=== PATIENT | female | born 1960 | race Caucasian/White ===

== ENCOUNTER → 2018-01-15 | Outpatient (CLI) | payer OTHER, MEDICAID ==
[2016-01-22 14:01] VITALS: BP 138/74
[2018-01-15 09:00] LABS: CHOL/HDL RATIO 4.6 (0.0-5.0)
== END ==
LOC: LAB 07:39
PROVIDERS: ATTEND Nuclear Medicine Nuclear Cardiology
DX: E78.4 Other hyperlipidemia (principal)
CPT/HCPCS: 36415; 80061; 84450; 84460

== ENCOUNTER 2025-07-02 06:24 | Inpatient (IN) ==
--- NOTE | 2025-07-02 06:41 | DR.CP ---
HPI <Michelle Macdonald - Last Filed: 07/08/25 21:50> Time Seen Time Seen by Provider: 07/02/25 06:40 PCP Primary Care Physician: HPI Comment HPI Comment: 64 y/o with copd with cough and worsening sob x 2 days for which she received home oxygen but did not know how to use it; this morning, she woke with substernal cp, n/v x 3 and generally feeling worse so she called ems. Complaint Chief Complaint:: pt c/o Sob,cough,nausea and chest pain that started three days ago and is getting worse. COVID-19 Coronavirus risk:travel/contact w/high risk person: No Has patient experienced Coronavirus symptoms: Yes Coronavirus symptoms experienced: Coughing and Shortness of Breath Source History Provided: Patient Mode of Arrival Mode of Arrival: EMS Timing Onset of Chief Complaint: 06/29/25 PMH <Michelle Macdonald - Last Filed: 07/08/25 21:50> PMH Past Medical History: Yes Past Medical History: Anxiety, COPD, Diabetes, Dyslipidemia, GERD and Hypertension Past Surgical History: Yes Surgical History: Appendectomy, Cholecystectomy, Hysterectomy and Other Family History History of Family Medical Conditions: Yes Family Medical History: Diabetes Mellitus, [place], Coronary Artery Disease and Hypertension Social History Does patient currently use any type of tobacco product: Yes Have you used tobacco products in the last 12 months: Yes Type of Tobacco Use: Cigarettes Do you use any recreational Drugs:: No Travel Risk Coronavirus risk:travel/contact w/high risk person: No Has patient experienced Coronavirus symptoms: Yes Coronavirus symptoms experienced: Coughing and Shortness of Breath Infectious screening Have you traveled outside the country in the last 6 months?: No Isolation: Standard ROS <Michelle Macdonald - Last Filed: 07/08/25 21:50> Review of Systems Constitutional: No Symptoms Reported Eyes: No Symptoms Reported ENTM: No Symptoms Reported Respiratoy: See HPI and Wheezing Cardiovascular: See HPI and Chest Pain; negative Edema or Cyanosis Gastrointestinal/Abdominal: See HPI and Vomiting; negative Abdominal Pain Genitourinary: No Symptoms Reported Neurological: No Symptoms Reported Musculoskeletal: No Symptoms Reported Integumentary: No Symptoms Reported Hematologic/Lymphatic: No Symptoms Reported Endocrine: No Symptoms Reported Psychiatric: No Symptoms Reported PE <Michelle Macdonald - Last Filed: 07/08/25 21:50> Vitals Vitals: Vital Signs Temperature 98.9 F Pulse Rate 61 Pulse Rate 62 Pulse Rate 63 Pulse Rate 63 Pulse Rate 65 Pulse Rate 67 Pulse Rate 68 Pulse Rate 73 Pulse Rate 70 Pulse Rate 68 Pulse Rate 66 Pulse Rate 70 Pulse Rate 71 Pulse Rate 73 Pulse Rate 71 Pulse Rate 71 Pulse Rate 74 Pulse Rate 24 Pulse Rate 74 Pulse Rate 75 Respiratory Rate 17 Respiratory Rate 19 Respiratory Rate 19 Respiratory Rate 18 Respiratory Rate 21 Respiratory Rate 36 Respiratory Rate 26 Respiratory Rate 21 Respiratory Rate 33 Respiratory Rate 24 Respiratory Rate 27 Respiratory Rate 25 Respiratory Rate 25 Respiratory Rate 49 Respiratory Rate 29 Respiratory Rate 20 Respiratory Rate 27 Blood Pressure 181/77 Blood Pressure 173/76 Blood Pressure 170/74 Blood Pressure 173/75 Blood Pressure 173/75 Blood Pressure 150/66 Blood Pressure 184/76 Blood Pressure 180/76 Blood Pressure 199/86 Blood Pressure 199/86 O2 Sat by Pulse Oximetry 92 O2 Sat by Pulse Oximetry 92 O2 Sat by Pulse Oximetry 91 O2 Sat by Pulse Oximetry 88 O2 Sat by Pulse Oximetry 89 O2 Sat by Pulse Oximetry 89 O2 Sat by Pulse Oximetry 70 O2 Sat by Pulse Oximetry 89 O2 Sat by Pulse Oximetry 90 O2 Sat by Pulse Oximetry 98 O2 Sat by Pulse Oximetry 91 O2 Sat by Pulse Oximetry 92 O2 Sat by Pulse Oximetry 92 O2 Sat by Pulse Oximetry 91 O2 Sat by Pulse Oximetry 91 O2 Sat by Pulse Oximetry 91 O2 Sat by Pulse Oximetry 91 O2 Sat by Pulse Oximetry 90 O2 Sat by Pulse Oximetry 90 General Limitations: No Limitations and Physical Limitation General Appearance: Alert, In No Apparent Distress and Obese Head Head Exam: Normal Inspection Eyes Eye exam: Normal Appearance ENT ENT Exam: Normal Exam Chest Chest Inspection: Normal Inspection Respiratory Respiratory Exam: Prolonged Expiratory Phase Respiratory Exam: Bilateral: Wheezing Cardiovascular Cardiovascular Exam: Regular Rate and Normal Rhythm Pulse: Normal Edema: Normal Abdominal Exam Abdominal Exam: Normal Inspection, Normal Bowel Sounds and Soft Extremities Extremities Exam: Normal Inspection Back Back Exam: Normal Inspection Neurologic Neurological Exam: Alert and Oriented X3 Psychiatric Psychiatric Exam: Anxious Skin Skin Exam: Warm, Dry, Intact and Normal Color <Jalen Edmond - Last Filed: 07/02/25 10:04> Vitals Vitals: Vital Signs Temperature 98.9 F Pulse Rate 61 Pulse Rate 62 Pulse Rate 63 Pulse Rate 63 Pulse Rate 65 Pulse Rate 67 Pulse Rate 68 Pulse Rate 73 Pulse Rate 70 Pulse Rate 68 Pulse Rate 66 Pulse Rate 70 Pulse Rate 71 Pulse Rate 73 Pulse Rate 71 Pulse Rate 71 Pulse Rate 74 Pulse Rate 24 Pulse Rate 74 Pulse Rate 75 Respiratory Rate 17 Respiratory Rate 19 Respiratory Rate 19 Respiratory Rate 18 Respiratory Rate 21 Respiratory Rate 36 Respiratory Rate 26 Respiratory Rate 21 Respiratory Rate 33 Respiratory Rate 24 Respiratory Rate 27 Respiratory Rate 25 Respiratory Rate 25 Respiratory Rate 49 Respiratory Rate 29 Respiratory Rate 20 Respiratory Rate 27 Blood Pressure 181/77 Blood Pressure 173/76 Blood Pressure 170/74 Blood Pressure 173/75 Blood Pressure 173/75 Blood Pressure 150/66 Blood Pressure 184/76 Blood Pressure 180/76 Blood Pressure 199/86 Blood Pressure 199/86 O2 Sat by Pulse Oximetry 92 O2 Sat by Pulse Oximetry 92 O2 Sat by Pulse Oximetry 91 O2 Sat by Pulse Oximetry 88 O2 Sat by Pulse Oximetry 89 O2 Sat by Pulse Oximetry 89 O2 Sat by Pulse Oximetry 70 O2 Sat by Pulse Oximetry 89 O2 Sat by Pulse Oximetry 90 O2 Sat by Pulse Oximetry 98 O2 Sat by Pulse Oximetry 91 O2 Sat by Pulse Oximetry 92 O2 Sat by Pulse Oximetry 92 O2 Sat by Pulse Oximetry 91 O2 Sat by Pulse Oximetry 91 O2 Sat by Pulse Oximetry 91 O2 Sat by Pulse Oximetry 91 O2 Sat by Pulse Oximetry 90 O2 Sat by Pulse Oximetry 90 COURSE <Michelle Macdonald - Last Filed: 07/08/25 21:50> Treatment Treatment: 64 y/o pt with dm, htn, crf and copd with oxygen at home for the past two days which she had not started who continues to smoke comes in now with cough/sob; florid chf on cxr with elevated bnat and positive d-dimer; cta pending; care to Dr Edmond at 0800. ROR <Michelle Macdonald - Last Filed: 07/08/25 21:50> Labs Reviewed Laboratory Results Reviewed?: Yes 07/04/25 06:10 07/04/25 06:10 Laboratory: 07/02/25 09:49 Blood Blood Culture - Final 07/02/25 09:49 Blood Blood Culture - Final WBC 12.1 X10^3/uL (3.6-10.0) H 07/02/25 07:01 RBC 4.07 X10^6/uL (3.5-5.4) 07/02/25 07:01 Hgb 10.1 g/dL (12.0-16.0) L 07/02/25 07:01 Hct 32.3 % (36.0-47.0) L 07/02/25 07:01 MCV 79.2 fL (80.0-100.0) L 07/02/25 07:01 MCH 24.8 pg (27.0-34.0) L 07/02/25 07:01 MCHC 31.3 g/dL (33.0-35.0) L 07/02/25 07:01 RDW 17.1 % (11.6-16.5) H 07/02/25 07:01 Plt Count 321 X10^3/uL (150.0-450.0) 07/02/25 07:01 MPV 7.5 fL (7.4-11.0) 07/02/25 07:01 Neut % (Auto) 82.5 % (42.0-75.0) H 07/02/25 07:01 Lymph % (Auto) 10.4 % (21.0-51.0) L 07/02/25 07:01 [place] % (Auto) 5.3 % (0.0-13.0) 07/02/25 07:01 Eos % (Auto) 1.2 % (0.9-2.9) 07/02/25 07:01 Baso % (Auto) 0.6 % (0.2-1.0) 07/02/25 07:01 Neut # (Auto) 10.0 x10^3/uL (2.2-4.8) H 07/02/25 07:01 Lymph # (Auto) 1.3 X10^3/uL (1.3-2.9) 07/02/25 07:01 [place] # (Auto) 0.6 x10^3/uL (0.3-0.8) 07/02/25 07:01 Eos # (Auto) 0.1 x10^3/uL (0.0-0.2) 07/02/25 07:01 Baso # (Auto) 0.1 X10^3/uL (0.0-0.1) 07/02/25 07:01 Absolute Nucleated RBC 0.0 /100WBC 07/02/25 07:01 D-Dimer 2.81 ug/ml (0.0-0.57) H 07/02/25 07:01 Sample Site Rrad 07/02/25 08:45 ABG pH 7.400 (7.35-7.45) 07/02/25 08:45 ABG pCO2 38.0 mmHg (35.0-45.0) 07/02/25 08:45 ABG pO2 48.0 mmHg (80.0-100.0) L* 07/02/25 08:45 ABG HCO3 23.5 mmol/L (22-26) 07/02/25 08:45 ABG O2 Saturation 83.0 % (90-100) L* 07/02/25 08:45 ABG Base Excess -1.1 mmol/L (-2.0-2.0) 07/02/25 08:45 Myke Test Pos 07/02/25 08:45 A-a Gradient 54.0 mmHg 07/02/25 08:45 FiO2 21.0 07/02/25 08:45 Blood Gas Comments Jimmie well ms 07/02/25 08:45 Sodium 135 mmol/L (136-145) L 07/02/25 07:01 Corrected Sodium 137 mmol/L (136-145) 07/02/25 07:01 Potassium 3.6 mmol/L (3.5-5.1) 07/02/25 07:01 Chloride 100 mmol/L (98-107) 07/02/25 07:01 Carbon Dioxide 23.5 mmol/L (21-32) 07/02/25 07:01 BUN 11 mg/dL (7-18) 07/02/25 07:01 Creatinine 1.55 mg/dL (0.55-1.02) H 07/02/25 07:01 Est GFR (MDRD) Af Amer 43 (>60) L 07/02/25 07:01 Est GFR (MDRD) Non-Af 36 (>60) L 07/02/25 07:01 Glucose 176 mg/dL (65-99) H 07/02/25 07:01 Lactic Acid 1.4 mmol/L (0.4-2.0) 07/02/25 09:49 Calcium 8.3 mg/dL (8.5-10.1) L 07/02/25 07:01 Corrected Calcium 9.5 mg/dL (8.5-10.1) 07/02/25 07:01 Total Bilirubin 0.30 mg/dL (0.2-1.0) 07/02/25 07:01 AST 21 Units/L (15-37) 07/02/25 07:01 ALT 15 Units/L (12-78) 07/02/25 07:01 Alkaline Phosphatase 67 Units/L (46-116) 07/02/25 07:01 Creatine Kinase 31 Units/L (26-192) 07/02/25 07:01 Troponin I High Sens 18.4 ng/L (4.0-60.0) 07/02/25 07:01 B-Natriuretic Peptide 1660 pg/mL (0-79) H 07/02/25 07:01 Total Protein 7.3 g/dL (6.4-8.2) 07/02/25 07:01 Albumin 2.5 g/dL (3.4-5.0) L 07/02/25 07:01 Globulin 4.8 g/dL (2.5-4.5) H 07/02/25 07:01 Albumin/Globulin Ratio 0.5 Ratio (1.1-2.1) L 07/02/25 07:01 SARS-CoV-2 (PCR) Negative (NEGATIVE) 07/02/25 06:45 Influenza Type A (PCR) Negative (NEGATIVE) 07/02/25 06:45 Influenza Type B (PCR) Negative (NEGATIVE) 07/02/25 06:45 RSV (PCR) Negative (NEGATIVE) 07/02/25 06:45 XRAY XRAY Interpreted by: Self and Both X-ray Results: cxr pa/lat: chf cta: No evidence for acute pulmonary thromboembolic disease Cardiomegaly, interstitial prominence, Jordan's B-lines, and bilateral small pleural effusions suggest congestive heart failure Subtle diffuse bilateral ground-glass lung changes may represent mild edema related to the patient's congestive heart failure More prominent patchy and confluence right lung infiltrates suggest pneumonia. Follow-up until complete resolution is recommended. Mediastinal and right hilar lymph nodes which could be reactive, granulomatous, infectious, or neoplastic in origin. These should be followed along with patient's lung infiltrates to assess for resolution. Alternatively PET-CT could be obtained at this time if clinically indicated <Jalen Edmond - Last Filed: 07/02/25 10:04> Labs Reviewed Laboratory: 07/02/25 09:49 Blood Blood Culture - Final 07/02/25 09:49 Blood Blood Culture - Final WBC 12.1 X10^3/uL (3.6-10.0) H 07/02/25 07:01 RBC 4.07 X10^6/uL (3.5-5.4) 07/02/25 07:01 Hgb 10.1 g/dL (12.0-16.0) L 07/02/25 07:01 Hct 32.3 % (36.0-47.0) L 07/02/25 07:01 MCV 79.2 fL (80.0-100.0) L 07/02/25 07:01 MCH 24.8 pg (27.0-34.0) L 07/02/25 07:01 MCHC 31.3 g/dL (33.0-35.0) L 07/02/25 07:01 RDW 17.1 % (11.6-16.5) H 07/02/25 07:01 Plt Count 321 X10^3/uL (150.0-450.0) 07/02/25 07:01 MPV 7.5 fL (7.4-11.0) 07/02/25 07:01 Neut % (Auto) 82.5 % (42.0-75.0) H 07/02/25 07:01 Lymph % (Auto) 10.4 % (21.0-51.0) L 07/02/25 07:01 [place] % (Auto) 5.3 % (0.0-13.0) 07/02/25 07:01 Eos % (Auto) 1.2 % (0.9-2.9) 07/02/25 07:01 Baso % (Auto) 0.6 % (0.2-1.0) 07/02/25 07:01 Neut # (Auto) 10.0 x10^3/uL (2.2-4.8) H 07/02/25 07:01 Lymph # (Auto) 1.3 X10^3/uL (1.3-2.9) 07/02/25 07:01 [place] # (Auto) 0.6 x10^3/uL (0.3-0.8) 07/02/25 07:01 Eos # (Auto) 0.1 x10^3/uL (0.0-0.2) 07/02/25 07:01 Baso # (Auto) 0.1 X10^3/uL (0.0-0.1) 07/02/25 07:01 Absolute Nucleated RBC 0.0 /100WBC 07/02/25 07:01 D-Dimer 2.81 ug/ml (0.0-0.57) H 07/02/25 07:01 Sample Site Rrad 07/02/25 08:45 ABG pH 7.400 (7.35-7.45) 07/02/25 08:45 ABG pCO2 38.0 mmHg (35.0-45.0) 07/02/25 08:45 ABG pO2 48.0 mmHg (80.0-100.0) L* 07/02/25 08:45 ABG HCO3 23.5 mmol/L (22-26) 07/02/25 08:45 ABG O2 Saturation 83.0 % (90-100) L* 07/02/25 08:45 ABG Base Excess -1.1 mmol/L (-2.0-2.0) 07/02/25 08:45 Myke Test Pos 07/02/25 08:45 A-a Gradient 54.0 mmHg 07/02/25 08:45 FiO2 21.0 07/02/25 08:45 Blood Gas Comments Jimmie well ms 07/02/25 08:45 Sodium 135 mmol/L (136-145) L 07/02/25 07:01 Corrected Sodium 137 mmol/L (136-145) 07/02/25 07:01 Potassium 3.6 mmol/L (3.5-5.1) 07/02/25 07:01 Chloride 100 mmol/L (98-107) 07/02/25 07:01 Carbon Dioxide 23.5 mmol/L (21-32) 07/02/25 07:01 BUN 11 mg/dL (7-18) 07/02/25 07:01 Creatinine 1.55 mg/dL (0.55-1.02) H 07/02/25 07:01 Est GFR (MDRD) Af Amer 43 (>60) L 07/02/25 07:01 Est GFR (MDRD) Non-Af 36 (>60) L 07/02/25 07:01 Glucose 176 mg/dL (65-99) H 07/02/25 07:01 Lactic Acid 1.4 mmol/L (0.4-2.0) 07/02/25 09:49 Calcium 8.3 mg/dL (8.5-10.1) L 07/02/25 07:01 Corrected Calcium 9.5 mg/dL (8.5-10.1) 07/02/25 07:01 Total Bilirubin 0.30 mg/dL (0.2-1.0) 07/02/25 07:01 AST 21 Units/L (15-37) 07/02/25 07:01 ALT 15 Units/L (12-78) 07/02/25 07:01 Alkaline Phosphatase 67 Units/L (46-116) 07/02/25 07:01 Creatine Kinase 31 Units/L (26-192) 07/02/25 07:01 Troponin I High Sens 18.4 ng/L (4.0-60.0) 07/02/25 07:01 B-Natriuretic Peptide 1660 pg/mL (0-79) H 07/02/25 07:01 Total Protein 7.3 g/dL (6.4-8.2) 07/02/25 07:01 Albumin 2.5 g/dL (3.4-5.0) L 07/02/25 07:01 Globulin 4.8 g/dL (2.5-4.5) H 07/02/25 07:01 Albumin/Globulin Ratio 0.5 Ratio (1.1-2.1) L 07/02/25 07:01 SARS-CoV-2 (PCR) Negative (NEGATIVE) 07/02/25 06:45 Influenza Type A (PCR) Negative (NEGATIVE) 07/02/25 06:45 Influenza Type B (PCR) Negative (NEGATIVE) 07/02/25 06:45 RSV (PCR) Negative (NEGATIVE) 07/02/25 06:45 Opioid <iMchelle Macdonald - Last Filed: 07/08/25 21:50> Opioid Risk Tool Age (Terrance box if 16-45): No History of Preadolescent Sexual Abuse: No Total: 0 Total Score Risk Category: Low Risk Copyright: Magdi HAMILTON predicting aberrant behaviors <Jalen Edmond - Last Filed: 07/02/25 10:04> Opioid Risk Tool Total: 0 Total Score Risk Category: Low Risk Discharge Plan Diagnosis Discharge Problem: CHF (congestive heart failure), Chronic renal failure (CRF), stage 3b, D-dimer, elevated, Hypoxia Community acquired pneumonia Qualifiers: Laterality: unspecified laterality Qualified Code(s): J18.9 - Pneumonia, unspecified organism COPD (chronic obstructive pulmonary disease) Qualifiers: COPD type: unspecified COPD Qualified Code(s): J44.9 - Chronic obstructive pulmonary disease, unspecified Discharge Plan Patient Disposition: ADMITTED INPATIENT Condition: Stable ADDITIONAL NOTES <Jalen Edmond - Last Filed: 07/02/25 10:04> Additional Notes Additional Notes: O2 sat 92% on 3L. Admitted to Dr Rodriguez.
[2025-07-02] MEDS ORDERED: DUONEB 0.5 MG/3 MG (3 mL) NEB ONE (07:00)
[2025-07-02] MEDS: DUONEB 0.5 MG/3 MG (3 mL) NEB ONE (07:04)
[2025-07-02] MEDS: ZOFRAN INJ 4 MG VIAL IVP ONE (07:11)
[2025-07-02 07:12] LABS: MEAN PLATELET VOLUME 7.5 fL (7.4-11.0); RED CELL DISTRIBUTION WIDTH 17.1 % (11.6-16.5)
--- NOTE | 2025-07-02 07:16 | EKG ---
Test Reason : cough Blood Pressure : */* mmHG Vent. Rate : 71 BPM Atrial Rate : 71 BPM P-R Int : 184 ms QRS Dur : 88 ms QT Int : 388 ms P-R-T Axes : 78 32 -53 degrees QTc Int : 421 ms Normal sinus rhythm Nonspecific ST and T wave abnormality Abnormal ECG When compared with ECG of 19-DEC-2024 16:04, Nonspecific T wave abnormality now evident in Inferior leads Nonspecific T wave abnormality, worse in Lateral leads Confirmed by Adeel Solitario MD ([id number]) on 07/03/2025 5:34:13 AM Referred By: Confirmed By: Adeel Solitario MD
[2025-07-02 07:24] LABS: COR CA(FOR HYPOALB) 9.5 mg/dL (8.5-10.1); COR NA(FOR HYPERGLY) 137.0 mmol/L (136-145); CREATININE 1.55 mg/dL (0.55-1.02); eGFR NON BLACK RACES 36.0 (>60)
[2025-07-02] MEDS: LASIX IVP STA (07:51)
[2025-07-02] MEDS: NITROSTAT SL ONE (08:25)
--- NOTE | 2025-07-02 08:30 | RAD ---
EXAM: CHEST, PA/LAT ADULT HISTORY: pt c/o Sob,cough,nausea and chest pain that started three days ago and is getting worse.; HTN, DM, COPD, GERD SX: APPY, KELVIN, HYST COMPARISON: 12/19/2023 FINDINGS: Abnorm al opacity is present in the perihilar regions and lung bases. On this could be pulmonary edema or pneumonia. Findings are new since previous exam. No pleural effusion or pneumothorax. Cardiomegaly is present. The bones are unremarkable. Surgical clips are present in the right neck. EKG leads are noted. Epidural stimulator leads are seen in the midline lower thoracic spine. IMPRESSION: 1. New pulmonary edema or pneumonia 2. Cardiomegaly THIS IS AN ELECTRONICALLY VERIFIED FINAL REPORT 07/02/2025 8:26 AM - Electronically signed by Chuck Macdonald MD
[2025-07-02 08:46] LABS: ABG BASE EXCESS -1.1 mmol/L (-2.0-2.0); ABG HCO3 23.5 mmol/L (22-26); ABG PCO2 38.0 mmHg (35.0-45.0); ABG PH 7.400 (7.35-7.45)
[2025-07-02 08:47] LABS: ABG ALLEN TEST POS; ABG OXYGEN SATURATION 83.0 % (90-100); ABG PO2 48.0 mmHg (80.0-100.0)
--- NOTE | 2025-07-02 09:18 | CT ---
EXAM: CTA chest with contrast for pulmonary embolus HISTORY: Shortness of breath, elevated D-dimer TECHNIQUE: Axial postcontrast images with coronal and sagittal reformats. Three- dimensional maximum intensity projection images were obtained and evaluated. Dose reduction techniques were used with MA/kv adjusted for body size. COMPARISON: None FINDINGS: No evidence for acute pulmonary thromboembolic disease. Examination of the mediastinum demonstrated nonenlarged retrocaval pretracheal and AP window lymph nodes there is also a mildly enlarged retrocaval pretracheal node measuring 2.2 x 1.7 cm. This adenopathy could be reactive, infectious, granulomatous or neoplastic in origin. Follow-up chest CT in 4-6 months is recommended to assess for resolution. Prominent but not grossly enlarged right hilar nodes are present. No left hilar adenopathy identified. Heart is enlarged. Trace l pericardial effusion. Bilateral small pleural effusions are identified. Those portions of the upper abdominal organs visualized appeared within normal limits to the limitations of early arterial injection timing. There is an old compression fracture of the superior endplate of T5 and an old anterior wedge compression of T6. Examination of the lung alarcon was somewhat limited due to respiratory motion particularly in the lower lung alarcon. There is diffuse i nterstitial prominence and multiple Jordan's B-lines suggestive of congestive heart failure. Patchy right upper lobe, right middle lobe and more confluence infiltrates are present in the right lung suggestive of pneumonia. Diffuse bilateral ground-glass changes may be related to the congestive heart failure. No definite significant noncalcified pulmonary nodules but only to the motion limitation noted above. IMPRESSION: No evidence for acute pulmonary thromboembolic disease Cardiomegaly, interstitial prominence, Jordan's B-lines, and bilateral small pleural effusions suggest congestive heart failure Subtle diffuse bilateral ground-glass lung changes may represent mild edema related to the patient's congestive heart failure More prominent patchy and confluence right lung infiltrates suggest pneumonia. Follow-up until complete resolution is recommended. Mediastinal and right hilar lymph nodes which could be reactive, granulomatous, infectious, or neoplastic in origin. These should be followed along with patient's lung infiltrates to assess for resolution. Alternatively PET-CT could be obtained at this time if clinically indicated THIS IS AN ELECTRONICALLY VERIFIED FINAL REPORT 07/02/2025 9:15 AM - Electronically signed by Alin Gipson MD
[2025-07-02] MEDS: ROCEPHIN VIAL 1 GRAM 1 G in NS 100 ML IV 100 ML IV ONE (09:42)
[2025-07-02] MEDS: ZITHROMAX INJ 500 MG VIAL 500 MG in D5W 250 ML IV 250 ML IV SCH (09:50)
[2025-07-02] MEDS: ROCEPHIN VIAL 1 GRAM IV ONE (09:50)
[2025-07-02] MEDS ORDERED: ULTRAM PO PRN (10:34)
[2025-07-02] MEDS ORDERED: CONSULT PHARMACY - POTASSIUM & MAGNESIUM XX SCH (10:34)
[2025-07-02] MEDS ORDERED: ZOFRAN INJ 4 MG VIAL IVP PRN (10:34)
[2025-07-02] MEDS ORDERED: TYLENOL 325 MG TAB PO PRN (10:34)
[2025-07-02] MEDS ORDERED: MORPHINE SULFATE INJ 2 MG INJ IVP PRN (10:34)
[2025-07-02] MEDS ORDERED: ZOFRAN TAB 4 MG PO PRN (10:34)
[2025-07-02 11:20] VITALS: BMI 33.3
[2025-07-02] MEDS: NORCO 5/325 MG TAB PO PRN (11:39)
--- NOTE | 2025-07-02 13:00 | DR.H&P ---
H&P History & Physical for Day of: H&P Date: 07/02/25 Chief Complaint Chief Complaint: shortness of breath History of Present Illness History of Present Illness: Patient is a 64-year-old female with a past medical history of hypertension, CHF, type 2 diabetes, hyperlipidemia, COPD and anxiety presented with worsening shortness of breath. She states this has been going on for over 2 weeks. She was recently prescribed home oxygen but did not set it up to use it. She was having chest tightness and shortness of breath so came to the ER. Workup showed elevated BNP and D-dimer. Initial troponin was negative. ABG was concerning for hypoxia with low PO2. CT chest was negative for PE but did show pulmonary edema and possible pneumonia. She was given IV Lasix and started on IV antibiotics. She was placed on nasal cannula. She was admitted for further evaluation. She reports seeing cardiology. Labs/imaging reviewed: - WBC 12.1 hemoglobin 10.1 potassium 3.6 sodium 135 creatinine 1.55 BNP 1660 troponin x 1 negative lactic acid negative - Chest x-ray reviewed - CTA chest reviewed Plan: Admit to [facility] with telemetry. Continue IV Lasix, monitor I's and O's and daily weight. Continue IV antibiotics, nebs and Pulmicort. Wean oxygen as tolerated. Follow-up pending cultures. Order AIT. Order echocardiogram. Replace electrolytes as per protocol. Resume home medications. Physical therapy as tolerated. Monitor a.m. labs and imaging. Time spent for clinical assessment, reviewing labs and imaging, physical exam, decision making and documentation greater than 45 minutes. Past Medical History Past Medical History: Anxiety, COPD, Diabetes, Dyslipidemia, GERD and Hypertension Past Surgical History Surgical History: Appendectomy, Cholecystectomy, Hysterectomy and Other Family History Family Medical History: Diabetes Mellitus, [place], Coronary Artery Disease and Hypertension Social History Does patient currently use any type of tobacco product: Yes Have you used tobacco products in the last 12 months: Yes Type of Tobacco Use: Cigarettes Medications Home Medications: Home Medications Medication Instructions Recorded Confirmed Type aspirin 81 mg chewable tablet 81 mg PO QDAY 12/19/24 0 07/02/25 History atorvastatin 40 mg tablet 40 mg PO QPM 12/19/24 History cetirizine 10 mg tablet 10 mg PO QDAY 12/19/2407/02 History estradiol 0.5 mg tablet 0.5 mg PO QDAY 12/19/2406/14 History fenofibrate 160 mg tablet 160 mg PO QDAY 12/19/2406/14 History fluoxetine 40 mg capsule 40 mg PO QDAY 12/19/2407/02 History fluticasone propionate 50 1 spray intranasal QDAY 05/0707/02/25 History mcg/actuation nasal spray,suspension furosemide 40 mg tablet 40 mg PO QDAY 12/19/2407/02 History gabapentin 600 mg tablet 600 mg PO TID 12/19/2407/02 History losartan 25 mg tablet 25 mg PO QDAY 12/19/2407/02 History metformin 1,000 mg tablet 1,000 mg PO BID 12/19/24 History metoprolol succinate 50 mg 50 mg PO QDAY 12/19/2406/14 History tablet,extended release 24 hr mirabegron 50 mg tablet,extended 50 mg PO DAILY 07/02/25 History release 24 hr (Myrbetriq) montelukast 10 mg tablet 10 mg PO QDAY 12/19/2407/02 History niacin 500 mg tablet 500 mg PO QDAY 12/19/2406/14 History oxycodone 20 mg tablet 20 mg PO Q8H PRN 12/19/24 History sitagliptin phosphate 100 mg 100 mg PO QDAY 12/19/24 0 07/02/25 History tablet (Januvia) sucralfate 1 gram tablet 1 g PO TID 12/19/24 07/02/25 History famotidine 20 mg tablet 20 mg PO QPM PRN 07/02/25 History insulin glargine 100 unit/mL (3 10 unit subcut QPM 07/02/25 History mL) subcutaneous pen (Lantus Solostar U-100 Insulin) pantoprazole 40 mg tablet,delayed 40 mg PO QAM 5 07/02/25 History release Allergies Allergies Allergy/AdvReac Type Severity Reaction Status Date / Time doxycycline Allergy Verified 07/02/25 06:47 latex Allergy Verified 07/02/25 06:47 levofloxacin (From Levaquin) Allergy Verified 07/02/25 06:47 morphine Allergy Verified 07/02/25 06:47 nitrofurantoin (From Allergy Verified 07/02/25 06:47 Macrobid) Penicillins Allergy Verified 07/02/25 06:47 Sulfa (Sulfonamide Allergy Verified 07/02/25 06:47 Antibiotics) (SULFA) Labs 07/02/25 07:01 07/02/25 07:01 Labs: Laboratory WBC 12.1 X10^3/uL (3.6-10.0) H 07/02/25 07:01 RBC 4.07 X10^6/uL (3.5-5.4) 07/02/25 07:01 Hgb 10.1 g/dL (12.0-16.0) L 07/02/25 07:01 Hct 32.3 % (36.0-47.0) L 07/02/25 07:01 MCV 79.2 fL (80.0-100.0) L 07/02/25 07:01 MCH 24.8 pg (27.0-34.0) L 07/02/25 07:01 MCHC 31.3 g/dL (33.0-35.0) L 07/02/25 07:01 RDW 17.1 % (11.6-16.5) H 07/02/25 07:01 Plt Count 321 X10^3/uL (150.0-450.0) 07/02/25 07:01 MPV 7.5 fL (7.4-11.0) 07/02/25 07:01 Neut % (Auto) 82.5 % (42.0-75.0) H 07/02/25 07:01 Lymph % (Auto) 10.4 % (21.0-51.0) L 07/02/25 07:01 Piatt % (Auto) 5.3 % (0.0-13.0) 07/02/25 07:01 Eos % (Auto) 1.2 % (0.9-2.9) 07/02/25 07:01 Baso % (Auto) 0.6 % (0.2-1.0) 07/02/25 07:01 Neut # (Auto) 10.0 x10^3/uL (2.2-4.8) H 07/02/25 07:01 Lymph # (Auto) 1.3 X10^3/uL (1.3-2.9) 07/02/25 07:01 Piatt # (Auto) 0.6 x10^3/uL (0.3-0.8) 07/02/25 07:01 Eos # (Auto) 0.1 x10^3/uL (0.0-0.2) 07/02/25 07:01 Baso # (Auto) 0.1 X10^3/uL (0.0-0.1) 07/02/25 07:01 Absolute Nucleated RBC 0.0 /100WBC 07/02/25 07:01 D-Dimer 2.81 ug/ml (0.0-0.57) H 07/02/25 07:01 Sample Site Rrad 07/02/25 08:45 ABG pH 7.400 (7.35-7.45) 07/02/25 08:45 ABG pCO2 38.0 mmHg (35.0-45.0) 07/02/25 08:45 ABG pO2 48.0 mmHg (80.0-100.0) L* 07/02/25 08:45 ABG HCO3 23.5 mmol/L (22-26) 07/02/25 08:45 ABG O2 Saturation 83.0 % (90-100) L* 07/02/25 08:45 ABG Base Excess -1.1 mmol/L (-2.0-2.0) 07/02/25 08:45 Myke Test Pos 07/02/25 08:45 A-a Gradient 54.0 mmHg 07/02/25 08:45 FiO2 21.0 07/02/25 08:45 Blood Gas Comments Jimmie well ms 07/02/25 08:45 Sodium 135 mmol/L (136-145) L 07/02/25 07:01 Corrected Sodium 137 mmol/L (136-145) 07/02/25 07:01 Potassium 3.6 mmol/L (3.5-5.1) 07/02/25 07:01 Chloride 100 mmol/L (98-107) 07/02/25 07:01 Carbon Dioxide 23.5 mmol/L (21-32) 07/02/25 07:01 BUN 11 mg/dL (7-18) 07/02/25 07:01 Creatinine 1.55 mg/dL (0.55-1.02) H 07/02/25 07:01 Est GFR (MDRD) Af Amer 43 (>60) L 07/02/25 07:01 Est GFR (MDRD) Non-Af 36 (>60) L 07/02/25 07:01 Glucose 176 mg/dL (65-99) H 07/02/25 07:01 Lactic Acid 1.4 mmol/L (0.4-2.0) 07/02/25 09:49 Calcium 8.3 mg/dL (8.5-10.1) L 07/02/25 07:01 Corrected Calcium 9.5 mg/dL (8.5-10.1) 07/02/25 07:01 Total Bilirubin 0.30 mg/dL (0.2-1.0) 07/02/25 07:01 AST 21 Units/L (15-37) 07/02/25 07:01 ALT 15 Units/L (12-78) 07/02/25 07:01 Alkaline Phosphatase 67 Units/L (46-116) 07/02/25 07:01 Creatine Kinase 31 Units/L (26-192) 07/02/25 07:01 Troponin I High Sens 18.4 ng/L (4.0-60.0) 07/02/25 07:01 B-Natriuretic Peptide 1660 pg/mL (0-79) H 07/02/25 07:01 Total Protein 7.3 g/dL (6.4-8.2) 07/02/25 07:01 Albumin 2.5 g/dL (3.4-5.0) L 07/02/25 07:01 Globulin 4.8 g/dL (2.5-4.5) H 07/02/25 07:01 Albumin/Globulin Ratio 0.5 Ratio (1.1-2.1) L 07/02/25 07:01 SARS-CoV-2 (PCR) Negative (NEGATIVE) 07/02/25 06:45 Influenza Type A (PCR) Negative (NEGATIVE) 07/02/25 06:45 Influenza Type B (PCR) Negative (NEGATIVE) 07/02/25 06:45 RSV (PCR) Negative (NEGATIVE) 07/02/25 06:45 Review of Systems Constitutional: Weakness Eyes: No Symptoms Reported ENT: No Symptoms Reported Respiratory: Cough and SOB with Excertion Cardiovascular: Orthopnea Gastrointestinal: No Symptoms Reported Genitourinary: No Symptoms Reported Musculoskeletal: No Symptoms Reported Skin: No Symptoms Reported Neurological: No Symptoms Reported Physical Exam Vital Signs: Vital Signs Temperature 98.9 F Pulse Rate 61 Pulse Rate 62 Pulse Rate 63 Pulse Rate 63 Pulse Rate 65 Pulse Rate 67 Pulse Rate 68 Pulse Rate 73 Pulse Rate 70 Pulse Rate 68 Pulse Rate 66 Pulse Rate 70 Pulse Rate 71 Pulse Rate 73 Pulse Rate 71 Pulse Rate 71 Pulse Rate 74 Pulse Rate 24 Pulse Rate 74 Pulse Rate 75 Respiratory Rate 17 Respiratory Rate 19 Respiratory Rate 19 Respiratory Rate 18 Respiratory Rate 21 Respiratory Rate 36 Respiratory Rate 26 Respiratory Rate 21 Respiratory Rate 33 Respiratory Rate 24 Respiratory Rate 27 Respiratory Rate 25 Respiratory Rate 25 Respiratory Rate 49 Respiratory Rate 29 Respiratory Rate 20 Respiratory Rate 27 Blood Pressure 181/77 Blood Pressure 173/76 Blood Pressure 170/74 Blood Pressure 173/75 Blood Pressure 173/75 Blood Pressure 150/66 Blood Pressure 184/76 Blood Pressure 180/76 Blood Pressure 199/86 Blood Pressure 199/86 O2 Sat by Pulse Oximetry 92 O2 Sat by Pulse Oximetry 92 O2 Sat by Pulse Oximetry 91 O2 Sat by Pulse Oximetry 88 O2 Sat by Pulse Oximetry 89 O2 Sat by Pulse Oximetry 89 O2 Sat by Pulse Oximetry 70 O2 Sat by Pulse Oximetry 89 O2 Sat by Pulse Oximetry 90 O2 Sat by Pulse Oximetry 98 O2 Sat by Pulse Oximetry 91 O2 Sat by Pulse Oximetry 92 O2 Sat by Pulse Oximetry 92 O2 Sat by Pulse Oximetry 91 O2 Sat by Pulse Oximetry 91 O2 Sat by Pulse Oximetry 91 O2 Sat by Pulse Oximetry 91 O2 Sat by Pulse Oximetry 90 O2 Sat by Pulse Oximetry 90 Oriented: Normal Respiratory: RLL Rales and LLL Rales Cardiovascular: Normal Auscultation: Bowel Sounds: Normal Palpation: Normal Tenderness: Normal Skin: Normal Musculoskeletal: Normal Psychiatric: Normal Mood Description: Calm Affect: Normal Speech Pattern: Clear and Appropriate Assessment/Plan (1) Community acquired pneumonia: Qualifiers: Laterality: unspecified laterality Qualified Code(s): J18.9 - Pneumonia, unspecified organism Status: Acute (2) CHF exacerbation: Qualifiers: Heart failure type: unspecified Qualified Code(s): I50.9 - Heart failure, unspecified Status: Acute (3) Hypoxia: Status: Acute (4) Chronic renal failure (CRF), stage 3b: Status: Chronic (5) Generalized anxiety disorder: Status: Chronic (6) GERD (gastroesophageal reflux disease): Qualifiers: Esophagitis presence: esophagitis presence not specified Qualified Code(s): K21.9 - Gastro-esophageal reflux disease without esophagitis Status: Chronic (7) Diabetes mellitus, type 2: Qualifiers: Diabetes mellitus complication detail: with mononeuropathy Diabetes mellitus complication status: with neurologic complications Qualified Code(s): E11.41 - Type 2 diabetes mellitus with diabetic mononeuropathy Status: Chronic (8) COPD (chronic obstructive pulmonary disease): Qualifiers: COPD type: unspecified COPD Qualified Code(s): J44.9 - Chronic obstructive pulmonary disease, unspecified Status: Chronic (9) Tobacco abuse: Status: Chronic Review H&P Reviewed: Yes Patient was examined?: Yes
[2025-07-02] MEDS: DUONEB 0.5 MG/3 MG (3 mL) NEB SCH (13:26)
[2025-07-02] MEDS: NEURONTIN TAB 600 MG PO SCH (14:08)
[2025-07-02] MEDS: CARAFATE PO SCH (14:08)
--- NOTE | 2025-07-02 15:18 | EKG ---
Test Reason : NEW ONSET CHF Blood Pressure : */* mmHG Vent. Rate : 55 BPM Atrial Rate : 55 BPM P-R Int : 144 ms QRS Dur : 86 ms QT Int : 448 ms P-R-T Axes : 19 46 132 degrees QTc Int : 428 ms Sinus bradycardia Nonspecific ST and T wave abnormality Abnormal ECG When compared with ECG of 02-JUL-2025 07:05, (Unconfirmed) No significant change was found Confirmed by Adeel Solitario MD ([id number]) on 07/03/2025 5:33:06 AM Referred By: Confirmed By: Adeel Solitario MD
[2025-07-02] MEDS: PULMICORT NEB TX 0.5 MG NEB SCH (20:11)
[2025-07-02] MEDS: K-DUR TAB 20 MEQ PO SCH (21:07)
[2025-07-02] MEDS: LIPITOR TAB 40 MG PO SCH (21:07)
[2025-07-02] MEDS: GLUCOPHAGE ONE (21:08)
[2025-07-02] MEDS: SNACK - Diabetic Appropriate PO SCH (21:09)
[2025-07-02] MEDS: LANTUS SC SCH (21:09)
[2025-07-02] MEDS: GLUCOPHAGE PO SCH (21:13)
[2025-07-03 05:08] LABS: MEAN PLATELET VOLUME 7.7 fL (7.4-11.0); RED CELL DISTRIBUTION WIDTH 17.2 % (11.6-16.5)
[2025-07-03 05:39] LABS: COR CA(FOR HYPOALB) 10.0 mg/dL (8.5-10.1); COR NA(FOR HYPERGLY) 138.0 mmol/L (136-145); CREATININE 1.61 mg/dL (0.55-1.02); eGFR NON BLACK RACES 34.0 (>60)
--- NOTE | 2025-07-03 06:07 | RAD ---
EXAM: Portable chest HISTORY: Congestive heart failure, pneumonia COMPARISON: 07/02/2025 chest x-ray and CTA chest FINDINGS: Heart remains enlarged. Anne-Marie are prominent and indistinct and pulmonary venous congestion and perihilar interstitial changes are present. These findings suggest continued congestive heart failure. No definite alveolar edema identified. No definite alveolar infiltrates identified. The patchy and confluent right lung infiltrates visible on CT are not well identified on plain film. No definite visible pleural effusions. IMPRESSION: Cardiomegaly with congestive heart failure unchanged when compared with prior examination. The patchy and confluent right lung infiltrates visible on CT are not well demonstrated on plain film. THIS IS AN ELECTRONICALLY VERIFIED FINAL REPORT 07/03/2025 6:03 AM - Electronically signed by Alin Gipson MD
[2025-07-03] MEDS ORDERED: CONSULT PHARMACY - POTASSIUM & MAGNESIUM XX SCH (07:00)
[2025-07-03] MEDS: OMNIPAQUE 350 mg/mL 100 mL BTL 100 ML ONE (07:32)
[2025-07-03] MEDS: ROCEPHIN VIAL 1 GRAM ONE (07:32)
[2025-07-03] MEDS: PULMICORT NEB TX 0.5 MG NEB ONE (07:32)
[2025-07-03] MEDS: ESTRACE PO SCH (08:31)
[2025-07-03] MEDS: GLUCOPHAGE ONE (08:31)
[2025-07-03] MEDS: PROTONIX TAB 40 MG PO SCH (08:31)
[2025-07-03] MEDS: JANUVIA PO SCH (08:31)
[2025-07-03] MEDS: TOPROL XL PO SCH (08:31)
[2025-07-03] MEDS: LASIX IVP SCH (08:32)
[2025-07-03] MEDS: MYRBETRIQ PO SCH (08:32)
[2025-07-03] MEDS: TRICOR TAB 160 MG PO SCH (08:32)
[2025-07-03] MEDS: K-DUR TAB 20 MEQ PO SCH (08:32)
[2025-07-03] MEDS: COZAAR PO SCH (08:33)
[2025-07-03] MEDS: SINGULAIR TAB 10 MG PO SCH (08:33)
[2025-07-03] MEDS: ASPIRIN 81 MG CHEWTAB PO SCH (08:33)
[2025-07-03] MEDS: FLONASE NASAL SPRAY ENOSTRIL SCH (08:34)
[2025-07-03] MEDS: ROCEPHIN VIAL 1 GRAM 1 G in NS 100 ML IV 100 ML IV SCH (13:28)
[2025-07-03] MEDS: NovoLIN R (or HumuLIN R) SUBCUT PRN (21:45)
[2025-07-04] MEDS: GLUCOPHAGE ONE (02:43)
[2025-07-04 05:45] VITALS: TEMP 98
--- NOTE | 2025-07-04 06:28 | PCM.PROG ---
Progress Note Progress Note for Day of Date of Exam: 07/03/25 Subjective Subjective: Patient is a 64-year-old female with a past medical history of hypertension, CHF, type 2 diabetes, hyperlipidemia, COPD and anxiety admitted for CHF, COPD exacerbation, and CAP. This morning she is resting comfortably in bed. No acute events overnight. She reports improvement in her breathing and symptoms. Labs/imaging reviewed: - WBC 6.9, hgb 9.7, platelets 267, sodium 138, potassium 3.4, creatinine 1.61, glucose 120, - Blood culture pending - Chest x-ray reviewed, CHF findings - Echo pending - AIT revealed Klebsiella pneumonia Plan: Continue IV Lasix, monitor I's and O's and daily weight. Change IV antibiotics to Rocephin due to AIT showing Klebsiella pneumonia. Continue nebs and Pulmicort. Wean oxygen as tolerated. Add IV solumedrol 40mg daily. Follow- up pending cultures. Echo pending. Replace electrolytes as per protocol. Resume home medications. Physical therapy as tolerated. Monitor a.m. labs and imaging. Time spent for clinical assessment, reviewing labs and imaging, physical exam, decision making and documentation greater than 45 minutes. Past Medical Family Social History Allergies: Allergies doxycycline Allergy (Verified 07/02/25 06:47) latex Allergy (Verified 07/02/25 06:47) levofloxacin (From Levaquin) Allergy (Verified 07/02/25 06:47) morphine Allergy (Verified 07/02/25 06:47) nitrofurantoin (From Macrobid) Allergy (Verified 07/02/25 06:47) Penicillins Allergy (Verified 07/02/25 06:47) Sulfa (Sulfonamide Antibiotics) (SULFA) Allergy (Verified 07/02/25 06:47) Review of Systems ROS changes noted: see HPI Vital Signs and I&O's Vital Signs: Vital Signs Temperature 98.0 F Temperature 97.6 F Pulse Rate [Right Radial] 62 Pulse Rate [Right Radial] 66 Respiratory Rate 20 Respiratory Rate 20 Blood Pressure [Left Arm] 152/69 Blood Pressure [Right Arm] 152/67 O2 Sat by Pulse Oximetry 96 O2 Sat by Pulse Oximetry 96 Intake and Output: Intake & Output 07/01/25 07/02/25 07/03/25 07/04/25 23:59 23:59 23:59 23:59 Intake Total 370 / 370 930 / 930 Output Total 2800 / 2800 Balance -2430 / -2430 930 / 930 Physical Exam Oriented: Normal Eyes: Normal Ear: Normal Nose: Normal Respiratory: Diminished and Wheezes Cardiovascular: Normal Auscultation: Bowel Sounds: Normal Tenderness: Normal Skin: Normal Musculoskeletal: Normal Psychiatric: Normal Mood Description: Calm Affect: Normal Speech Pattern: Clear and Appropriate Laboratory and Diagnostics 07/03/25 04:25 07/03/25 04:25 Labs: Laboratory WBC 6.9 X10^3/uL (3.6-10.0) 07/03/25 04:25 RBC 3.83 X10^6/uL (3.5-5.4) 07/03/25 04:25 Hgb 9.7 g/dL (12.0-16.0) L 07/03/25 04:25 Hct 30.3 % (36.0-47.0) L 07/03/25 04:25 MCV 79.2 fL (80.0-100.0) L 07/03/25 04:25 MCH 25.4 pg (27.0-34.0) L 07/03/25 04:25 MCHC 32.1 g/dL (33.0-35.0) L 07/03/25 04:25 RDW 17.2 % (11.6-16.5) H 07/03/25 04:25 Plt Count 267 X10^3/uL (150.0-450.0) 07/03/25 04:25 MPV 7.7 fL (7.4-11.0) 07/03/25 04:25 Neut % (Auto) 53.3 % (42.0-75.0) 07/03/25 04:25 Lymph % (Auto) 33.6 % (21.0-51.0) 07/03/25 04:25 Hodgeman % (Auto) 7.8 % (0.0-13.0) 07/03/25 04:25 Eos % (Auto) 4.4 % (0.9-2.9) H 07/03/25 04:25 Baso % (Auto) 0.9 % (0.2-1.0) 07/03/25 04:25 Neut # (Auto) 3.7 x10^3/uL (2.2-4.8) 07/03/25 04:25 Lymph # (Auto) 2.3 X10^3/uL (1.3-2.9) 07/03/25 04:25 Hodgeman # (Auto) 0.5 x10^3/uL (0.3-0.8) 07/03/25 04:25 Eos # (Auto) 0.3 x10^3/uL (0.0-0.2) H 07/03/25 04:25 Baso # (Auto) 0.1 X10^3/uL (0.0-0.1) 07/03/25 04:25 Absolute Nucleated RBC 0.0 /100WBC 07/03/25 04:25 D-Dimer 2.81 ug/ml (0.0-0.57) H 07/02/25 07:01 Sample Site Rrad 07/02/25 08:45 ABG pH 7.400 (7.35-7.45) 07/02/25 08:45 ABG pCO2 38.0 mmHg (35.0-45.0) 07/02/25 08:45 ABG pO2 48.0 mmHg (80.0-100.0) L* 07/02/25 08:45 ABG HCO3 23.5 mmol/L (22-26) 07/02/25 08:45 ABG O2 Saturation 83.0 % (90-100) L* 07/02/25 08:45 ABG Base Excess -1.1 mmol/L (-2.0-2.0) 07/02/25 08:45 Myke Test Pos 07/02/25 08:45 A-a Gradient 54.0 mmHg 07/02/25 08:45 FiO2 21.0 07/02/25 08:45 Blood Gas Comments Jimmie well ms 07/02/25 08:45 Sodium 138 mmol/L (136-145) 07/03/25 04:25 Corrected Sodium 138 mmol/L (136-145) 07/03/25 04:25 Potassium 3.4 mmol/L (3.5-5.1) L 07/03/25 04:25 Chloride 101 mmol/L (98-107) 07/03/25 04:25 Carbon Dioxide 29.7 mmol/L (21-32) 07/03/25 04:25 BUN 14 mg/dL (7-18) 07/03/25 04:25 Creatinine 1.61 mg/dL (0.55-1.02) H 07/03/25 04:25 Est GFR (MDRD) Af Amer 41 (>60) L 07/03/25 04:25 Est GFR (MDRD) Non-Af 34 (>60) L 07/03/25 04:25 Glucose 120 mg/dL (65-99) H 07/03/25 04:25 POC Glucose (mg/dL) 142 mg/dL (65-99) H 07/04/25 05:25 Lactic Acid 1.4 mmol/L (0.4-2.0) 07/02/25 09:49 Calcium 8.6 mg/dL (8.5-10.1) 07/03/25 04:25 Corrected Calcium 10.0 mg/dL (8.5-10.1) 07/03/25 04:25 Total Bilirubin 0.20 mg/dL (0.2-1.0) 07/03/25 04:25 AST 20 Units/L (15-37) 07/03/25 04:25 ALT 14 Units/L (12-78) 07/03/25 04:25 Alkaline Phosphatase 62 Units/L (46-116) 07/03/25 04:25 Creatine Kinase 31 Units/L (26-192) 07/02/25 07:01 Troponin I High Sens 19.2 ng/L (4.0-60.0) 07/02/25 22:47 B-Natriuretic Peptide 1660 pg/mL (0-79) H 07/02/25 07:01 Total Protein 6.8 g/dL (6.4-8.2) 07/03/25 04:25 Albumin 2.3 g/dL (3.4-5.0) L 07/03/25 04:25 Globulin 4.5 g/dL (2.5-4.5) 07/03/25 04:25 Albumin/Globulin Ratio 0.5 Ratio (1.1-2.1) L 07/03/25 04:25 SARS-CoV-2 (PCR) Negative (NEGATIVE) 07/02/25 06:45 Influenza Type A (PCR) Negative (NEGATIVE) 07/02/25 06:45 Influenza Type B (PCR) Negative (NEGATIVE) 07/02/25 06:45 RSV (PCR) Negative (NEGATIVE) 07/02/25 06:45 Resp Viral Panel (PCR) See scanned report 07/02/25 10:53 Plan (1) Community acquired pneumonia: Status: Acute Qualifiers: Laterality: unspecified laterality Qualified Code(s): J18.9 - Pneumonia, unspecified organism (2) CHF exacerbation: Status: Acute Qualifiers: Heart failure type: unspecified Qualified Code(s): I50.9 - Heart failure, unspecified (3) Hypoxia: Status: Acute (4) Chronic renal failure (CRF), stage 3b: Status: Chronic (5) Generalized anxiety disorder: Status: Chronic (6) GERD (gastroesophageal reflux disease): Status: Chronic Qualifiers: Esophagitis presence: esophagitis presence not specified Qualified Code(s): K21.9 - Gastro-esophageal reflux disease without esophagitis (7) Diabetes mellitus, type 2: Status: Chronic Qualifiers: Diabetes mellitus complication status: with neurologic complications D iabetes mellitus complication detail: with mononeuropathy Qualified Code(s): 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
[2025-07-04 06:46] LABS: MEAN PLATELET VOLUME 7.8 fL (7.4-11.0); RED CELL DISTRIBUTION WIDTH 17.0 % (11.6-16.5)
[2025-07-04 06:55] LABS: COR CA(FOR HYPOALB) 10.1 mg/dL (8.5-10.1); COR NA(FOR HYPERGLY) 139.0 mmol/L (136-145); CREATININE 1.51 mg/dL (0.55-1.02); eGFR NON BLACK RACES 37.0 (>60)
[2025-07-04] MEDS ORDERED: CONSULT PHARMACY - POTASSIUM & MAGNESIUM XX SCH (08:00)
[2025-07-04 08:22] VITALS: RESP 19
[2025-07-04] MEDS ORDERED: GLUCOPHAGE ONE (11:02)
[2025-07-04] MEDS: MAG-OX TAB PO SCH (11:22)
[2025-07-04] MEDS: K-DUR TAB 20 MEQ PO SCH (11:23)
[2025-07-04 12:24] VITALS: BP 122/60; PULSE 61; O2SAT 100
[2025-07-04] MEDS ORDERED: SNACK - Diabetic Appropriate PO SCH (20:00)
--- NOTE | 2025-07-08 10:42 | W.DIS.FURT ---
Summary of Discharge Discharge Summary of Date Date of Exam: 07/04/25 Admission Date Date of Admission: 07/02/25 Admission Diagnosis Patient Problems (Updated 07/02/25 @ 12:59 by Kathy Vaca MD) Hypoxia (Acute) R09.02 Community acquired pneumonia (Acute) J18.9 D-dimer, elevated (Acute) R79.89 Chronic renal failure (CRF), stage 3b (Chronic) N18.32 CHF (congestive heart failure) (Acute) I50.9 COPD (chronic obstructive pulmonary disease) (Chronic) J44.9 Hospital Course: Patient is a 64-year-old female with a past medical history of hypertension, CHF, type 2 diabetes, hyperlipidemia, COPD and anxiety admitted for CHF, COPD exacerbation, and CAP. Her hospital/treatment course included: IV Lasix, monitor I's and O's and daily weight. IV antibiotics Rocephin due to AIT showing Klebsiella pneumonia. Nebs and Pulmicort. IV solumedrol 40mg daily. Echo to be followed up outpatient. Patient responded well to treatments and symptoms significantly improved. She was discharged in stable condition. She was prescribed cefdinir. Instructed follow-up with PCP in 1 week. Vital Signs: Vital Signs (72 hours) 07/02/25 06:27 07/02/25 06:29 07/02/25 06:29 Temperature Pulse Rate 75 74 Pulse Rate [Right Radial] Respiratory Rate 27 H Blood Pressure 199/86 Blood Pressure [Left Arm] Blood Pressure [Right Arm] O2 Sat by Pulse Oximetry 90 L 90 L Oxygen Delivery Method Oxygen Flow Rate FIO2% 07/02/25 06:30 07/02/25 06:30 07/02/25 06:45 Temperature 98.9 F Pulse Rate 24 L 74 71 Pulse Rate [Right Radial] Respiratory Rate 20 29 H 49 H Blood Pressure 199/86 Blood Pressure [Left Arm] Blood Pressure [Right Arm] O2 Sat by Pulse Oximetry 91 L 91 L 91 L Oxygen Delivery Method Room Air Oxygen Flow Rate FIO2% 07/02/25 06:48 07/02/25 06:48 07/02/25 07:00 Temperature Pulse Rate 71 73 Pulse Rate [Right Radial] Respiratory Rate 25 H Blood Pressure 180/76 Blood Pressure [Left Arm] Blood Pressure [Right Arm] O2 Sat by Pulse Oximetry 91 L 92 L Oxygen Delivery Method Oxygen Flow Rate FIO2% 07/02/25 07:05 07/02/25 07:09 07/02/25 07:09 Temperature Pulse Rate 71 70 Pulse Rate [Right Radial] Respiratory Rate 25 H Blood Pressure 184/76 Blood Pressure [Left Arm] Blood Pressure [Right Arm] O2 Sat by Pulse Oximetry 92 L 91 L Oxygen Delivery Method Oxygen Flow Rate FIO2% 07/02/25 07:15 07/02/25 07:30 07/02/25 07:31 Temperature Pulse Rate 66 68 Pulse Rate [Right Radial] Respiratory Rate 27 H 24 Blood Pressure 150/66 Blood Pressure [Left Arm] Blood Pressure [Right Arm] O2 Sat by Pulse Oximetry 98 90 L Oxygen Delivery Method Oxygen Flow Rate FIO2% 07/02/25 07:45 07/02/25 08:15 07/02/25 08:21 Temperature Pulse Rate 70 73 Pulse Rate [Right Radial] Respiratory Rate 33 H Blood Pressure 173/75 Blood Pressure [Left Arm] Blood Pressure [Right Arm] O2 Sat by Pulse Oximetry 89 L 70 L Oxygen Delivery Method Oxygen Flow Rate FIO2% 07/02/25 08:21 07/02/25 08:21 07/02/25 08:25 Temperature Pulse Rate 68 Pulse Rate [Right Radial] Respiratory Rate 21 26 H Blood Pressure 173/75 Blood Pressure [Left Arm] Blood Pressure [Right Arm] O2 Sat by Pulse Oximetry 89 L Oxygen Delivery Method Oxygen Flow Rate FIO2% 07/02/25 08:30 07/02/25 08:30 07/02/25 08:30 Temperature Pulse Rate 67 Pulse Rate [Right Radial] Respiratory Rate 36 H 20 Blood Pressure 170/74 Blood Pressure [Left Arm] Blood Pressure [Right Arm] O2 Sat by Pulse Oximetry 89 L Oxygen Delivery Method Oxygen Flow Rate FIO2% 07/02/25 08:45 07/02/25 09:00 07/02/25 09:00 Temperature Pulse Rate 65 63 Pulse Rate [Right Radial] Respiratory Rate 21 18 Blood Pressure 173/76 Blood Pressure [Left Arm] Blood Pressure [Right Arm] O2 Sat by Pulse Oximetry 88 L 91 L Oxygen Delivery Method Oxygen Flow Rate FIO2% 07/02/25 09:15 07/02/25 09:30 07/02/25 09:30 Temperature Pulse Rate 63 62 Pulse Rate [Right Radial] Respiratory Rate 19 19 Blood Pressure 181/77 Blood Pressure [Left Arm] Blood Pressure [Right Arm] O2 Sat by Pulse Oximetry 92 L 92 L Oxygen Delivery Method Oxygen Flow Rate FIO2% 07/02/25 09:45 07/02/25 10:40 07/02/25 10:40 Temperature 98.2 F Pulse Rate 61 Pulse Rate [Right Radial] 60 Respiratory Rate 17 19 Blood Pressure Blood Pressure [Left Arm] Blood Pressure [Right Arm] 142/61 O2 Sat by Pulse Oximetry 97 Oxygen Delivery Method Nasal Cannula Nasal Cannula Oxygen Flow Rate 3 FIO2% 32 07/02/25 11:39 07/02/25 12:39 07/02/25 12:50 Temperature Pulse Rate Pulse Rate [Right Radial] Respiratory Rate 20 20 Blood Pressure Blood Pressure [Left Arm] Blood Pressure [Right Arm] O2 Sat by Pulse Oximetry Oxygen Delivery Method Nasal Cannula Oxygen Flow Rate 3 FIO2% 07/02/25 13:26 07/02/25 16:00 07/02/25 19:00 Temperature 97.5 F L Pulse Rate 60 Pulse Rate [Right Radial] 54 L Respiratory Rate 18 Blood Pressure Blood Pressure [Left Arm] Blood Pressure [Right Arm] 137/64 O2 Sat by Pulse Oximetry 97 94 L Oxygen Delivery Method Nasal Cannula Nasal Cannula Oxygen Flow Rate 3 3 FIO2% 07/02/25 20:00 07/02/25 20:10 07/02/25 20:10 Temperature 97.6 F Pulse Rate 58 L Pulse Rate [Right Radial] 56 L Respiratory Rate 18 Blood Pressure Blood Pressure [Left Arm] Blood Pressure [Right Arm] 130/60 O2 Sat by Pulse Oximetry 93 L 99 Oxygen Delivery Method Nasal Cannula Nasal Cannula Oxygen Flow Rate 3 2 FIO2% 28 07/02/25 22:24 07/02/25 23:24 07/02/25 23:51 Temperature 98.1 F Pulse Rate Pulse Rate [Right Radial] 67 Respiratory Rate 19 19 20 Blood Pressure Blood Pressure [Left Arm] Blood Pressure [Right Arm] 137/70 O2 Sat by Pulse Oximetry 95 Oxygen Delivery Method Nasal Cannula Oxygen Flow Rate 3 FIO2% 07/03/25 03:58 07/03/25 07:00 07/03/25 07:53 Temperature 98.0 F 97.4 F L Pulse Rate Pulse Rate [Right Radial] 53 L 73 Respiratory Rate 19 19 Blood Pressure Blood Pressure [Left Arm] 116/56 Blood Pressure [Right Arm] O2 Sat by Pulse Oximetry 94 L 94 L Oxygen Delivery Method Nasal Cannula Nasal Cannula Nasal Cannula Oxygen Flow Rate 3 3 3 FIO2% 07/03/25 08:57 07/03/25 08:57 07/03/25 11:45 Temperature 97.8 F Pulse Rate 58 L Pulse Rate [Right Radial] 62 Respiratory Rate 19 Blood Pressure Blood Pressure [Left Arm] 132/62 Blood Pressure [Right Arm] O2 Sat by Pulse Oximetry 100 100 Oxygen Delivery Method Nasal Cannula Nasal Cannula Oxygen Flow Rate 3 3 FIO2% 28 07/03/25 15:31 07/03/25 19:00 07/03/25 19:35 Temperature 97.7 F Pulse Rate Pulse Rate [Right Radial] 67 Respiratory Rate 20 18 Blood Pressure Blood Pressure [Left Arm] 158/70 Blood Pressure [Right Arm] O2 Sat by Pulse Oximetry 98 Oxygen Delivery Method Nasal Cannula Nasal Cannula Oxygen Flow Rate 3 3 FIO2% 07/03/25 20:00 07/03/25 20:35 07/03/25 20:55 Temperature 98.1 F Pulse Rate 81 Pulse Rate [Right Radial] 80 Respiratory Rate 20 18 Blood Pressure Blood Pressure [Left Arm] 157/74 Blood Pressure [Right Arm] O2 Sat by Pulse Oximetry 92 L 98 Oxygen Delivery Method Nasal Cannula Oxygen Flow Rate 3 FIO2% 07/03/25 20:55 07/04/25 00:00 07/04/25 04:00 Temperature 97.6 F 98.0 F Pulse Rate Pulse Rate [Right Radial] 66 62 Respiratory Rate 20 20 Blood Pressure Blood Pressure [Left Arm] 152/69 Blood Pressure [Right Arm] 152/67 O2 Sat by Pulse Oximetry 96 96 Oxygen Delivery Method Nasal Cannula Nasal Cannula Nasal Cannula Oxygen Flow Rate 2 3 3 FIO2% 28 07/04/25 08:00 07/04/25 09:13 07/04/25 09:13 Temperature 98.0 F Pulse Rate 59 L Pulse Rate [Right Radial] 60 Respiratory Rate 19 Blood Pressure Blood Pressure [Left Arm] Blood Pressure [Right Arm] 143/80 O2 Sat by Pulse Oximetry 97 97 Oxygen Delivery Method Nasal Cannula Nasal Cannula Oxygen Flow Rate 3 2 FIO2% 28 Labs: Laboratory Last Values WBC 8.2 X10^3/uL (3.6-10.0) 07/04/25 06:10 RBC 3.88 X10^6/uL (3.5-5.4) 07/04/25 06:10 Hgb 9.9 g/dL (12.0-16.0) L 07/04/25 06:10 Hct 30.9 % (36.0-47.0) L 07/04/25 06:10 MCV 79.6 fL (80.0-100.0) L 07/04/25 06:10 MCH 25.5 pg (27.0-34.0) L 07/04/25 06:10 MCHC 32.0 g/dL (33.0-35.0) L 07/04/25 06:10 RDW 17.0 % (11.6-16.5) H 07/04/25 06:10 Plt Count 306 X10^3/uL (150.0-450.0) 07/04/25 06:10 MPV 7.8 fL (7.4-11.0) 07/04/25 06:10 Neut % (Auto) 63.5 % (42.0-75.0) 07/04/25 06:10 Lymph % (Auto) 26.5 % (21.0-51.0) 07/04/25 06:10 [place] % (Auto) 6.9 % (0.0-13.0) 07/04/25 06:10 Eos % (Auto) 1.8 % (0.9-2.9) 07/04/25 06:10 Baso % (Auto) 1.3 % (0.2-1.0) H 07/04/25 06:10 Neut # (Auto) 5.2 x10^3/uL (2.2-4.8) H 07/04/25 06:10 Lymph # (Auto) 2.2 X10^3/uL (1.3-2.9) 07/04/25 06:10 [place] # (Auto) 0.6 x10^3/uL (0.3-0.8) 07/04/25 06:10 Eos # (Auto) 0.2 x10^3/uL (0.0-0.2) 07/04/25 06:10 Baso # (Auto) 0.1 X10^3/uL (0.0-0.1) 07/04/25 06:10 Absolute Nucleated RBC 0.0 /100WBC 07/04/25 06:10 D-Dimer 2.81 ug/ml (0.0-0.57) H 07/02/25 07:01 Sample Site Rrad 07/02/25 08:45 ABG pH 7.400 (7.35-7.45) 07/02/25 08:45 ABG pCO2 38.0 mmHg (35.0-45.0) 07/02/25 08:45 ABG pO2 48.0 mmHg (80.0-100.0) L* 07/02/25 08:45 ABG HCO3 23.5 mmol/L (22-26) 07/02/25 08:45 ABG O2 Saturation 83.0 % (90-100) L* 07/02/25 08:45 ABG Base Excess -1.1 mmol/L (-2.0-2.0) 07/02/25 08:45 Gely Test Pos 07/02/25 08:45 A-a Gradient 54.0 mmHg 07/02/25 08:45 FiO2 21.0 07/02/25 08:45 Blood Gas Comments Jimmie well ms 07/02/25 08:45 Sodium 138 mmol/L (136-145) 07/04/25 06:10 Corrected Sodium 139 mmol/L (136-145) 07/04/25 06:10 Potassium 3.4 mmol/L (3.5-5.1) L 07/04/25 06:10 Chloride 102 mmol/L (98-107) 07/04/25 06:10 Carbon Dioxide 27.9 mmol/L (21-32) 07/04/25 06:10 BUN 17 mg/dL (7-18) 07/04/25 06:10 Creatinine 1.51 mg/dL (0.55-1.02) H 07/04/25 06:10 Est GFR (MDRD) Af Amer 44 (>60) L 07/04/25 06:10 Est GFR (MDRD) Non-Af 37 (>60) L 07/04/25 06:10 Glucose 125 mg/dL (65-99) H 07/04/25 06:10 POC Glucose (mg/dL) 154 mg/dL (65-99) H 07/04/25 10:31 Lactic Acid 1.4 mmol/L (0.4-2.0) 07/02/25 09:49 Calcium 8.8 mg/dL (8.5-10.1) 07/04/25 06:10 Corrected Calcium 10.1 mg/dL (8.5-10.1) 07/04/25 06:10 Magnesium 1.5 mg/dL (2.0-2.9) L 07/04/25 06:10 Total Bilirubin 0.30 mg/dL (0.2-1.0) 07/04/25 06:10 AST 18 Units/L (15-37) 07/04/25 06:10 ALT 16 Units/L (12-78) 07/04/25 06:10 Alkaline Phosphatase 61 Units/L (46-116) 07/04/25 06:10 Creatine Kinase 31 Units/L (26-192) 07/02/25 07:01 Troponin I High Sens 19.2 ng/L (4.0-60.0) 07/02/25 22:47 B-Natriuretic Peptide 1660 pg/mL (0-79) H 07/02/25 07:01 Total Protein 7.0 g/dL (6.4-8.2) 07/04/25 06:10 Albumin 2.4 g/dL (3.4-5.0) L 07/04/25 06:10 Globulin 4.6 g/dL (2.5-4.5) H 07/04/25 06:10 Albumin/Globulin Ratio 0.5 Ratio (1.1-2.1) L 07/04/25 06:10 SARS-CoV-2 (PCR) Negative (NEGATIVE) 07/02/25 06:45 Influenza Type A (PCR) Negative (NEGATIVE) 07/02/25 06:45 Influenza Type B (PCR) Negative (NEGATIVE) 07/02/25 06:45 RSV (PCR) Negative (NEGATIVE) 07/02/25 06:45 Resp Viral Panel (PCR) See scanned report 07/02/25 10:53 Reason For Visit: NEW ON-SET CHF, PULM EDEMA, HYPOXIA, CAP, CKD, Discharge Date Discharge Date: 07/04/25 Discharge Diagnosis All Active Problems (Updated 07/02/25 @ 12:59 by Kathy Vaca MD) CHF exacerbation (Acute) Hypoxia (Acute) Community acquired pneumonia (Acute) D-dimer, elevated (Acute) Chronic renal failure (CRF), stage 3b (Chronic) CHF (congestive heart failure) (Acute) Chronic frontal sinusitis (Acute) Orthostatic hypotension (Acute) Nicotine dependence with current use (Acute) Chronic bronchitis (Acute) Hyperlipidemia (Chronic) Generalized anxiety disorder (Chronic) GERD (gastroesophageal reflux disease) (Chronic) Diabetes mellitus, type 2 (Chronic) COPD (chronic obstructive pulmonary disease) (Chronic) Tobacco abuse (Chronic) Depression (Chronic) COPD exacerbation (Acute) Hypertension (Chronic) Plan of Treatment: Continue with present treatment and follow up plan. Pt is to keep follow up appointment as instructed and take medications as ordered. Discharge Medications Discharge Medications: doxycycline Allergy (Verified 07/02/25 06:47) latex Allergy (Verified 07/02/25 06:47) levofloxacin (From Levaquin) Allergy (Verified 07/02/25 06:47) morphine Allergy (Verified 07/02/25 06:47) nitrofurantoin (From Macrobid) Allergy (Verified 07/02/25 06:47) Penicillins Allergy (Verified 07/02/25 06:47) Sulfa (Sulfonamide Antibiotics) (SULFA) Allergy (Verified 07/02/25 06:47) CONTINUE taking the following medications famotidine 20 mg tablet 20 mg PO QPM PRN 07/02/25 [History] insulin glargine 100 unit/mL (3 mL) subcutaneous pen (Lantus Solostar U-100 Insulin) 10 unit subcut QPM 07/02/25 [History] pantoprazole 40 mg tablet,delayed release 40 mg PO QAM 07/02/25 [History] Discharge Disposition Assessment: No distress noted. Discharge Plan Discharge Plan Hospital Course: Patient is a 64-year-old female with a past medical history of hypertension, CHF, type 2 diabetes, hyperlipidemia, COPD and anxiety admitted for CHF, COPD exacerbation, and CAP. Her hospital/treatment course included: IV Lasix, monitor I's and O's and daily weight. IV antibiotics Rocephin due to AIT showing Klebsiella pneumonia. Nebs and Pulmicort. IV solumedrol 40mg daily. Echo to be followed up outpatient. Patient responded well to treatments and symptoms significantly improved. She was discharged in stable condition. She was prescribed cefdinir. Instructed follow-up with PCP in 1 week. Patient Disposition: 01 HOME, SELF-CARE Condition: Stable Health Concerns: Post Hospitalization: new medications and changes needed to prevent readmission or further decline. Pt educated and given instructions on all concerns. Care Plan Goals: Problem: Infection Goal: Temperature within normal limits. Resolved infection. Instructions: Follow provided instructions. Follow up with primary physician as directed. Contact primary care physician or report to the closest Emergency Room if condition worsens. Plan of Treatment: Continue with present treatment and follow up plan. Pt is to keep follow up appointment as instructed and take medications as ordered. Assessment: No distress noted. Prescriptions: New cefdinir 300 mg Capsule 300 mg PO Q12H Qty: 10 0RF No Action fluoxetine 40 mg capsule 40 mg PO QDAY furosemide 40 mg tablet 40 mg PO QDAY atorvastatin 40 mg tablet 40 mg PO QPM gabapentin 600 mg tablet 600 mg PO TID cetirizine 10 mg tablet 10 mg PO QDAY metoprolol succinate 50 mg tablet extended release 24 hr 50 mg PO QDAY sucralfate 1 gram tablet 1 g PO TID metformin 1,000 mg tablet 1,000 mg PO BID losartan 25 mg tablet 25 mg PO QDAY niacin 500 mg tablet 500 mg PO QDAY aspirin 81 mg Tablet,Chewable 81 mg PO QDAY montelukast 10 mg tablet 10 mg PO QDAY estradiol 0.5 mg tablet 0.5 mg PO QDAY fluticasone propionate 50 mcg/actuation spray,suspension 1 spray INTRANASAL QDAY fenofibrate 160 mg tablet 160 mg PO QDAY Januvia 100 mg tablet 100 mg PO QDAY oxycodone 20 mg tablet 20 mg PO Q8H PRN mirabegron [Myrbetriq] 50 mg tablet extended release 24 hr 50 mg PO DAILY insulin glargine [Lantus Solostar U-100 Insulin] 100 unit/mL (3 mL) insulin pen 10 unit SUBCUT QPM famotidine 20 mg tablet 20 mg PO QPM PRN pantoprazole 40 mg tablet,delayed release (DR/EC) 40 mg PO QAM Follow ups/Referrals Follow ups/Referrals: GELY CHO [Primary Care Provider, Unknown] - 07/11/25 10:30 am Instructions Instructions: Health Risks of Smoking, Home Oxygen Use, Adult, Heart Failure: How to Manage, Community-Acquired Pneumonia, Adult, [id number] Activity Restrictions/Additional Instructions: FLU WITH PCP , IN A WEEK. TAKE LASIX 40MG PO BID FOR 3 DAYS ,BR Stand Alone Forms: Find Help Web Site, Post Hospital Follow Up Care Print Language: STATELESS
== END 2025-07-04 14:30 | disposition home or self-care (01) | DRG 291 ==
LOC: ER 06:24 → MED/SURG 10:04
PROVIDERS: ADMIT Family Medicine; ATTEND Family Medicine
DX: Z79.4 Long term (current) use of insulin; E83.51 Hypocalcemia; I50.89 Other heart failure; J44.9 Chronic obstructive pulmonary disease, unspecified; R05.8 Other specified cough; R79.1 Abnormal coagulation profile; R06.02 Shortness of breath; N18.32 Chronic kidney disease, stage 3b; R07.89 Other chest pain; E83.42 Hypomagnesemia; I13.0 Hypertensive heart and chronic kidney disease with heart failure and stage 1 through stage 4 chronic kidney disease, or unspecified chronic kidney disease; R94.31 Abnormal electrocardiogram [ECG] [EKG]; Z72.0 Tobacco use; I48.91 Unspecified atrial fibrillation; Z03.818 Encounter for observation for suspected exposure to other biological agents ruled out; J15.0 Pneumonia due to Klebsiella pneumoniae; E78.5 Hyperlipidemia, unspecified; R00.1 Bradycardia, unspecified; F41.1 Generalized anxiety disorder; K21.9 Gastro-esophageal reflux disease without esophagitis; E11.41 Type 2 diabetes mellitus with diabetic mononeuropathy; E87.1 Hypo-osmolality and hyponatremia; E11.65 Type 2 diabetes mellitus with hyperglycemia